=== PATIENT | female | born 1950 | race Caucasian/White ===

== ENCOUNTER 2021-11-13 11:23 | Observation (INO) | payer MEDICARE, OTHER ==
[~2021-11-13] VITALS: Ht 167.6 cm; Wt 102.2 kg
[2021-11-13] MEDS ORDERED: ASPIRIN CHEWABLE 81 MG TABLET. PO ONE (12:00)
--- NOTE | 2021-11-13 12:04 | PHYS DOC ---
Past History Past Medical History: GERD, Hypertension Past Surgical History: Tubal ligation, Other Additional Past Surgical Histo: TONSILS, R-FOOT Smoking: Non-smoker Alcohol Use: Rarely Drug Use: None General Adult EDM: Chief Complaint: CHEST PAIN HPI: HPI: Pt is a 71 yo F who presnts c/o intermittent CP since 199. Pt stats she awoke from sleep with L sided CP that radiated to her jaw and diaphoresis. Pt states at this time she took 2 baby ASA and went back to sleep. She states she awoke 2 hours later with a similar pain and went back to sleep. She states when she woke up for the day she had one more episode of pain, but has not had pain since. 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 She denies SOB and n/v/d. Patient reports cardiac risk factors of hypertension. Review of Systems: Review of Systems: Constitutional: Denies fever or chills Eyes: Denies redness or eye pain HENT: Denies nasal congestion or sore throat Respiratory: Denies cough or shortness of breath Cardiovascular: Denies palpitations; Reports chest pain and diaphoresis GI: Denies abdominal pain, nausea, or vomiting : Denies dysuria or hematuria Musculoskeletal: Denies back pain or joint pain Integument: Denies rash or skin lesions Neurologic: Denies headache, focal weakness or sensory changes Complete systems were reviewed and found to be within normal limits, except as documented in this note. Current Medications: Current Meds: Current Medications Medications (Trade) Dose Ordered Sig/[facility] Start Time Stop Time Status Last Admin Dose Admin Aspirin (Aspirin Chewable) 162 mg 1X ONCE 11/13/21 12:00 11/13/21 12:01 Allergies: Allergies: Allergies Coded Allergies Type Severity Reaction Last Updated Verified Sulfa (Sulfonamide Antibiotics) Allergy Unknown 11/13/21 Yes Physical Exam: PE: Constitutional: Well developed, well nourished, no acute distress, non-toxic appearance HENT: Normocephalic, atraumatic Eyes: Conjunctiva normal, no discharge Neck: Normal range of motion, supple Lungs & Thorax: No respiratory distress, equal chest rise and fall Abdomen: Soft, no tenderness Skin: Warm, dry, no erythema, no rash Back: No tenderness, no CVA tenderness Extremities: No tenderness, ROM intact, no edema Neurologic: Alert and oriented X 3, no focal deficits noted Psychologic: Affect normal, judgment normal Current Patient Data: Vital Signs: Vital Signs Date Time Temp Pulse Resp B/P (MAP) Pulse Ox O2 Delivery O2 Flow Rate FiO2 11/13/21 11:30 98.2 65 20 187/77 (113) 100 Room Air EKG: EKG: @[address] elevation baseline artifact noted QRS 82 QTc 385 Radiology/Procedures: Radiology/Procedures: PROCEDURE: PORTABLE CHEST 1V EXAM: XR CHEST 1V 11/13/2021 12:06 PM CLINICAL INDICATION: Chest pain COMPARISON: None TECHNIQUE: AP upright view of the chest FINDINGS: The heart is normal in size. Lungs are adequately expanded. No consolidation, pleural effusion, or pneumothorax. No acute osseous abnormality. IMPRESSION: No acute cardiopulmonary abnormality. Electronically signed by: Chanel Spaulding MD (11/13/2021 12:11 PM) [id number] Heart Score: C/O Chest Pain: Yes HEART Score for Chest Pain: HEART Score for Chest Pain Response (Comments) Value History Moderately Suspicious 1 ECG Normal 0 Age > 65 2 Risk Factors 1 or 2 Risk Factors 1 Troponin < Normal Limit 0 Total 4 Risk Factors: Risk Factors: DM, Current or recent (<one month) smoker, HTN, HLP, family history of CAD, obesity. Risk Scores: Score 0 - 3: 2.5% MACE over next 6 weeks - Discharge Home Score 4 - 6: 20.3% MACE over next 6 weeks - Admit for Clinical Observation Score 7 - 10: 72.7% MACE over next 6 weeks - Early Invasive Strategies Course & Med Decision Making: Course & Med Decision Making Pertinent Labs and Imaging studies reviewed. (See chart for details) Pt is a 71 yo F who presents with intermittent chest pain. Patient with cardiac risk factors of hypertension. Patient took 162 mg of aspirin this morning. EKG without acute finding. An additional 162 mg of aspirin provided. Chest x-ray without acute finding. Labs obtained and posted to chart. Initial troponin within normal limits. HEART score 4. Recommended to patient need for admission for observation for f urther evaluation including serial troponins, telemetry monitoring, and cardiology evaluation. Patient reports she does not want to be admitted and is requesting to be discharged. Patient discussed findings with her family members and requests a 2-hour troponin to be evaluated. Patient reports if changed she may be agreeable to stay and/or be transferred. Repeat troponin within normal limits. Patient again advised of need for admission for further evaluation and treatment. Patient originally electing to leave AMA, however in talking with her family, she has decided to stay for further evaluation. Discussed case with Dr. España (hospitalist) who is in agreement with observation admission. Discussed case with Georgette CRUZ (cardiology) who is in agreement with consultation. Discussed findings and plan with patient, who acknowledges understanding and agreement. Dragon Disclaimer: Dragon Disclaimer: This electronic medical record was generated, in whole or in part, using a voice recognition dictation system. Departure Departure: Impression: Primary Impression: Chest pain Qualified Codes: R07.9 - Chest pain, unspecified Disposition: ADMITTED INPATIENT (observation) Admitting Physician: Olegario España Condition: STABLE Referrals: FAUSTINO MONTES (PCP) ELIAS VERGARA MD, MICHAEL R DO Nov 13, 2021 12:04
--- NOTE | 2021-11-13 12:13 | RAD ---
EXAM: XR CHEST 1V 11/13/2021 12:06 PM CLINICAL INDICATION: Chest pain COMPARISON: None TECHNIQUE: AP upright view of the chest FINDINGS: The heart is normal in size. Lungs are adequately expanded. No consolidation, pleural effu cait, or pneumothorax. No acute osseous abnormality. IMPRESSION: No acute cardiopulmonary abnormality. Electronically signed by: Chanel Spaulding MD (11/13/2021 12:11 PM) [id number]
[2021-11-13 12:14] LABS: BASO # 0.1 x10^3/uL (0.0-0.2); BASO % 1 % (0-3); EOS # 0.2 x10^3/uL (0.0-0.7); EOS % 2 % (0-3); HEMATOCRIT 39.2 % (36.0-47.0); HEMOGLOBIN 12.8 g/dL (12.0-15.5); LYMPH # 2.6 x10^3/uL (1.0-4.8); LYMPH % 27 % (24-48); MEAN CORPUSCULAR HEMOGLOBIN 29 pg (25-35); MEAN CORPUSCULAR HGB CONC 33 g/dL (31-37); MEAN CORPUSCULAR VOLUME 87 fL (79-100); MONO # 0.8 x10^3/uL (0.0-1.1); MONO % 8 % (0-9); NEUT % 62 % (31-73); PLATELET COUNT 298 x10^3/uL (140-400); RED BLOOD COUNT 4.51 x10^6/uL (3.50-5.40); RED CELL DISTRIBUTION WIDTH 14.7 % (11.5-14.5); WHITE BLOOD COUNT 9.7 x10^3/uL (4.0-11.0)
[2021-11-13 12:27] LABS: CALCIUM 9.5 mg/dL (8.5-10.1); CREATININE 0.8 mg/dL (0.6-1.0); GFR 71.1; POTASSIUM 4.4 mmol/L (3.5-5.1)
[2021-11-13 12:44] LABS: ALBUMIN 3.2 g/dL (3.4-5.0); ALBUMIN/GLOBULIN RATIO 0.8 (1.0-1.7); MAGNESIUM 1.9 mg/dL (1.8-2.4); TOTAL BILIRUBIN 0.5 mg/dL (0.2-1.0); TOTAL PROTEIN 7.1 g/dL (6.4-8.2)
[2021-11-13 13:13] LABS: BACTERIA,URINE 0 /HPF (0-FEW); CLARITY,URINE CLEAR; COLOR,URINE YELLOW; GLUCOSE,URINE NEG (NEG); NITRITE,URINE NEG (NEG); RBC,URINE OCC /HPF (0-2); SQUAMOUS EPITHELIAL CELL,UR OCC /LPF; UROBILINOGEN,URINE 0.2 mg/dL (0.2 mg/dL); WBC,URINE 0 /HPF (0-4)
[2021-11-13] MEDS ORDERED: MELO15TA23 PO (15:54)
[2021-11-13] MEDS ORDERED: ATOR10TA60 PO (15:54)
[2021-11-13] MEDS ORDERED: HYDR25TA10 PO (15:54)
--- NOTE | 2021-11-13 16:20 | NUR ---
PT ARRIVED TO UNIT VIA EMS. PT VS OBTAINED AND ARE STABLE. PT IS ORIENTED TO UNIT AND GIVEN NEW PT PACKET. PTS TELE IS APPLIED AND PT IS OFFERED FOOD AND DRINK. PT IS RESTING IN BED AT THIS TIME. DR GARCIA NOTIFIED OF ADMISSION.
[2021-11-13] MEDS ORDERED: ALPR0.254 PO (18:14)
[2021-11-13 20:24] VITALS: BP 122/77
[2021-11-13] MEDS: ALPRAZolam 0.25 MG TABLET PO PRN (21:49)
[2021-11-13 23:14] VITALS: BP 99/62
--- NOTE | 2021-11-14 00:44 | EKG ---
[address] [address] Test Date: 2021-11-13 Test Time: 11:44:09 Pat Name: SABINA MORRISSEY Department: Room: 123 A Gender: F [employer] Instructor: : [id number] Requested By: MERRITT DEJESUS Order Number: [id number] Reading MD: Frandy Daniels Measurements Intervals [place] Rate: 53 P: 0 OR: 204 QRS: 26 QRSD: 82 T: 21 QT: 408 QTc: 385 Interpretive Statements SINUS RHYTHM T ABNORMALITY IN ANTERIOR LEADS ABNORMAL ECG RI6.02 No previous ECG available for comparison Electronically Signed On 11-15-2021 18:19:47 CDT by Frandy Daniels
[2021-11-14 05:59] VITALS: BP 115/65
[2021-11-14] MEDS ORDERED: LANSOPRAZOLE 30 MG TAB.RAP.DR FT SCH (07:30)
[2021-11-14] MEDS: ALPRAZolam 0.25 MG TABLET PO PRN (07:40)
--- NOTE | 2021-11-14 07:57 | PDOC2 ---
CARDIAC CONSULT DATE OF CONSULT DOS: DATE: 11/14/21 TIME: 07:54 REASON FOR CONSULT Reason for Consult Chest pain REFERRING PHYSICIAN Referring Physician Dr. España SOURCE Source: Chart review, Patient HPI History of Present Illness This is a 71 yo female who presented secondary to chest pain. Patient reports she woke up in the middle of the night on Saturday with brief sharp pains under her left chest. She went back to sleep and woke up a few hours later and had a pain in her left jaw and felt sweaty. She took 2 ASA and went back to sleep. She then woke up that morning and pain was gone. She had another brief sharp pains under her left breast later that morning. No dizziness, palpitations, or shortness of breath. has a history of NM and CAD s/p CABG recently and she reports he had atypical symptoms. Was concerned that maybe she was having a heart attach so she came into the ED for further evaluation and treatment. No prior history of CAD or cardiac workup. 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 She also helps take care of her granddaughter as she has a grandson who recently when through transplant surgery. Reports immense amount of stress recently. PAST MEDICAL HISTORY Cardiovascular: hyperipidemia GI: GERD Psych: Anxiety PAST SURGICAL HISTORY Past Surgical History: No pertinent history FAMILY HISTORY Family History: Hypertension SOCIAL HISTORY Smoke: No ALCOHOL: none Drugs: None Lives: with Family CURRENT MEDICATIONS Current Medications Current Medications Aspirin (Aspirin Chewable) 162 mg 1X ONCE PO Last administered on 11/13/21at 12:02; Start 11/13/21 at 12:00; Stop 11/13/21 at 12:01; Status DC Lansoprazole (Prevacid) 30 mg BIDBFRMEAL FT Last administered on 11/14/21at 07:39; Start 11/14/21 at 07:30 Atorvastatin Calcium (Lipitor) 10 mg DAILY PO Last administered on 11/14/21at 07:40; Start 11/14/21 at 09:00 Hydrochlorothiazide (Hydrodiuril) 25 mg DAILY PO Last administered on 11/14/21at 07:39; Start 11/14/21 at 09:00 Alprazolam (Xanax) 0.25 mg PRN TID PRN PO anxiety Last administered on 11/14/21at 07:40; Start 11/13/21 at 20:30 Active Scripts Active Reported Alprazolam 0.25 Mg Tablet 1 Tab PO TID PRN Meloxicam 15 Mg Tablet 1 Tab PO DAILY Atorvastatin Calcium 10 Mg Tablet 1 Tab PO DAILY Hydrochlorothiazide 25 Mg Tablet 1 Tab PO DAILY ALLERGIES Allergies: Coded Allergies: Sulfa (Sulfonamide Antibiotics) (Verified Allergy, Unknown, 11/13/21) ROS Review of Systems 14 point ROS conducted with pertinent positives noted above in HPI PHYSICAL EXAM General: Alert, Oriented X3, Cooperative, No acute distress HEENT: Atraumatic Lungs: Clear to auscultation Heart: Regular rate Abdomen: Soft, No tenderness Extremities: No edema, Normal pulses Skin: No breakdown Neuro: Normal speech, Sensation intact Psych/Mental Status: Mental status NL, Mood NL MUSCULOSKELETAL: Osteoarthritic changes both hands VITALS Vital Signs Vital Signs Date Time Temp Pulse Resp B/P (MAP) Pulse Ox O2 Delivery O2 Flow Rate FiO2 11/14/21 05:59 97.6 59 20 115/65 (82) 95 Room Air LABS LABS Laboratory Tests Test 11/13/21 11:55 11/13/21 12:10 11/13/21 12:43 11/13/21 13:54 White Blood Count 9.7 x10^3/uL (4.0-11.0) Red Blood Count 4.51 x10^6/uL (3.50-5.40) Hemoglobin 12.8 g/dL (12.0-15.5) Hematocrit 39.2 % (36.0-47.0) Mean Corpuscular Volume 87 fL (79-100) Mean Corpuscular Hemoglobin 29 pg (25-35) Mean Corpuscular Hemoglobin Concent 33 g/dL (31-37) Red Cell Distribution Width 14.7 % (11.5-14.5) Platelet Count 298 x10^3/uL (140-400) Neutrophils (%) (Auto) 62 % (31-73) Lymphocytes (%) (Auto) 27 % (24-48) Monocytes (%) (Auto) 8 % (0-9) Eosinophils (%) (Auto) 2 % (0-3) Basophils (%) (Auto) 1 % (0-3) Neutrophils # (Auto) 6.0 x10^3uL (1.8-7.7) Lymphocytes # (Auto) 2.6 x10^3/uL (1.0-4.8) Monocytes # (Auto) 0.8 x10^3/uL (0.0-1.1) Eosinophils # (Auto) 0.2 x10^3/uL (0.0-0.7) Basophils # (Auto) 0.1 x10^3/uL (0.0-0.2) Sodium Level 137 mmol/L (136-145) Potassium Level 4.4 mmol/L (3.5-5.1) Chloride Level 106 mmol/L (98-107) Carbon Dioxide Level 25 mmol/L (21-32) Anion Gap 6 (6-14) Blood Urea Nitrogen 21 mg/dL (7-20) Creatinine 0.8 mg/dL (0.6-1.0) Estimated GFR (Cockcroft-Gault) 71.1 BUN/Creatinine Ratio 26 (6-20) Glucose Level 112 mg/dL (70-99) Calcium Level 9.5 mg/dL (8.5-10.1) Magnesium Level 1.9 mg/dL (1.8-2.4) Total Bilirubin 0.5 mg/dL (0.2-1.0) Aspartate Amino Transf (AST/SGOT) 30 U/L (15-37) Alanine Aminotransferase (ALT/SGPT) 26 U/L (14-59) Alkaline Phosphatase 107 U/L (46-116) Creatine Kinase 111 U/L (26-192) Creatine Kinase MB (Mass) 1.5 ng/mL (0.0-3.6) Creatine Kinase MB Relative Index 1.4 % (0-4) Troponin I High Sensitivity 10 ng/L (4-50) 10 ng/L (4-50) WQ-Ucr-I-Type Natriuretic Peptide 389 pg/mL (0-124) Total Protein 7.1 g/dL (6.4-8.2) Albumin 3.2 g/dL (3.4-5.0) Albumin/Globulin Ratio 0.8 (1.0-1.7) Lipase 68 U/L (73-393) Urine Collection Type Clean catch Urine Color Yellow Urine Clarity Clear Urine pH 5.5 Urine Specific [place] 1.020 Urine Protein Neg (NEG-TRACE) Urine Glucose (UA) Neg mg/dL (NEG) Urine Ketones (Stick) Neg mg/dL (NEG) Urine Blood Trace (NEG) Urine Nitrite Neg (NEG) Urine Bilirubin Neg (NEG) Urine Urobilinogen Dipstick 0.2 mg/dL (0.2 mg/dL) Urine Leukocyte Esterase Neg (NEG) Urine RBC Occ /HPF (0-2) Urine WBC 0 /HPF (0-4) Urine Squamous Epithelial Cells Occ /LPF Urine Bacteria 0 /HPF (0-FEW) Coronavirus (COVID-19)(PCR) Not detected (NOT DETECTD) SARS-CoV-2 Antigen (Rapid) Negative (NEGATIVE) Test 11/13/21 19:40 Troponin I High Sensitivity 11 ng/L (4-50) ASSESSMENT/PLAN Assessment/Plan 1. Chest pain, atypical; AMI ruled out. EKG without significant acute changes 2. Accelerated hypertension; now controlled 3. Hyperlipidemia; statin 4. Anxiety, high stress burden at home caring for Recommendations ASA. Lipids- continue statin Echo today Outpatient stress test and followup as arranged Supportive care LOIS CADENA APRN Nov 14, 2021 07:57
[2021-11-14] MEDS ORDERED: hydroCHLOROthiazide 25 MG TABLET. PO SCH (09:00)
[2021-11-14] MEDS ORDERED: ATORVASTATIN CALCIUM 10 MG TABLET. PO SCH (09:00)
--- NOTE | 2021-11-14 10:30 | NUR ---
PATIENT IS DISCHARGED HOME WITH SELF CARE. PT IS STABLE AT TIME OF DISCHARGE. IV IS REMOVED AND TELE MONITOR D/C'D. PT IS GIVEN ALL DISCHARGE AND FOLLOW UP INSTRUCTIONS INCLUDING CARDIOLOGY FOLLOW UP APPOINTMENTS. PT IS ESCORTED OFF OF UNIT ACCOMPANIED BY [facility]. WILL CONTINUE TO MONITOR.
--- NOTE | 2021-11-14 10:33 | HP ---
DATE OF SERVICE: 11/14/2021 ADMIT DATE: 11/13/2021 ATTENDING PHYSICIAN: Dr. España. CHIEF COMPLAINT: Chest pain. HISTORY OF PRESENT ILLNESS: The patient is a very pleasant, active 71-year-old female, admitted through the ED with chest pain that awoke her in the middle of the night on Saturday. She had an extensive workup. The pain was quite severe. Her has been ill lately, diagnosed with a stroke and with the cancer. 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 Her initial enzymes were negative for coronary ischemia. Risk factors are minimal. She was admitted then for rule out, serial enzymes and formal Cardiology consultation. PAST MEDICAL HISTORY: Significant for laparoscopic cholecystectomy, degenerative arthritis and hyperlipidemia. SOCIAL HISTORY: She is a nonsmoker, nondrinker. She drinks occasional caffeine. CURRENT MEDICATIONS: Reviewed. ALLERGIES: SHE HAS ALLERGIES TO SULFA DRUGS. Other scheduled meds include Mobic 15 mg daily, Lipitor, hydrochlorothiazide, and alprazolam. FAMILY HISTORY: Noncontributory. No history of heart disease. REVIEW OF SYSTEMS: Significant for the stress encounter with her 's recent illness. 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 All other systems reviewed and turned out to be negative. She has no COVID exposure. PHYSICAL EXAMINATION: GENERAL: When I saw her, this is a pleasant, middle-aged female. VITAL SIGNS: Initial vital signs showed a blood pressure 122/77, pulse is 60 and regular. She was afebrile, oxygen saturation 96% on room air. HEENT: Head is without trauma. Pupils are reactive. Sclerae are nonicteric. Oropharynx clear. NECK: Supple. No bruits. LUNGS: Clear to auscultation. CARDIOVASCULAR: Showed regular heart tones. ABDOMEN: Soft. EXTREMITIES: Without edema. NEUROLOGIC FINDINGS: Focally intact. PERTINENT LABORATORY STUDIES: Hemoglobin on admission was 12.8 g/dL with a white count of 9700. The first set of cardiac enzymes were negative. Electrolytes, BUN and creatinine all within normal range. BNP was 389. IMAGING STUDIES: Chest x-ray on admission showed no acute cardiopulmonary process. ASSESSMENT: 1. A 71-year-old female with atypical chest pain, most likely gastroesophageal nature. 2. Probable nonsteroidal anti-inflammatory drug gastritis. 3. Increased stress due to her 's illness. 4. Degenerative arthritis of knees. PLAN: 1. Observation status. 2. Serial enzymes. 3. Formal Cardiology consultation in the morning. 4. Stop meloxicam. JIMMY/FLORY DR: Jordy TID: [id number]
--- NOTE | 2021-11-14 13:46 | DS ---
DATE OF DISCHARGE: 11/14/2021 ATTENDING PHYSICIAN: Dr. España. FINAL DISCHARGE DIAGNOSES: 1. Atypical chest pain, coronary ischemia ruled out. 2. Gastroesophageal reflux disease. 3. Probable nonsteroidal anti-inflammatory drug gastritis. 4. Hypertension. 5. History of tubal ligation, history of appendectomy, history of cholecystectomy. 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 She has been taking care of her debilitated . She came in with chest pain, most likely gastroesophageal in nature. She was admitted for further treatment, rule out and Cardiology consultation. PHYSICAL EXAMINATION: Please see the dictated note. PERTINENT LABORATORY AND X-RAY STUDIES: Chest x-ray was clear. No overt decompensation. BNP was adequate. CBC was normal. Three sets of cardiac enzymes negative for coronary ischemia. Electrolytes, BUN and creatinine, liver functions were all within normal range. COURSE IN THE HOSPITAL: She was admitted. Formal Cardiology consultation recommended an echocardiogram, which was completed. Results are pending. She is also going to be set up for an outpatient nuclear medicine stress test. Reassurance the pain subsided. She is discharged home the next day in stable condition. I recommended oral Mylanta as needed and to stop her meloxicam. She can continue her Xanax, lipid agent and hydrochlorothiazide. The patient was then discharged from our hospital in stable condition with explicit drug and followup care. JIMMY/MAEGAN QUIROZ: JIMMY/karyna TID: [id number]
--- NOTE | 2021-11-14 17:16 | CARD ---
MR#: [id number] Date of Study: 11/14/2021 Ordering Physician: LOIS CADENA, Referring Physician: LOIS CADENA, Tech: Vinayak Mae [facility] APPROVED REPORT EXAM: Two-dimensional and M-mode echocardiogram with Doppler and color Doppler. Other Information Quality : AverageHR: 57bpm Rhythm : NSR INDICATION Chest Pain Tachycardia RISK FACTORS Obesity Hyperlipidemia 2D DIMENSIONS Left Atrium(2D)4.1 (1.6-4.0cm)IVSd0.9 (0.7-1.1cm) Aortic Root(2D)2.5 (2.0-3.7cm)LVDd5.0 (3.9-5.9cm) LVOT Diameter1.9 (1.8-2.4cm)PWd1.0 (0.7-1.1cm) LA Gqbsun45 (18-58mL)LVDs2.2 (2.5-4.0cm) FS (%) 55.5 %SV101.5 ml Aortic Valve AoV Peak Wally.151.6cm/sAoV VTI33.8cm AO Peak GR.9.2mmHgLVOT Peak Wally.147.4cm/s LVOT VTI 32.48cmAO Mean GR.5mmHg LANIE (VMAX)2.51ln8YEZ (VTI)2.61cm2 Mitral Valve MV E Kykwytnn840.5cm/sMV E Peak Gr.6mmHg MV DECEL ONLO609ohSE A Hidnklpt96.4cm/s MV E Mean Gr.2mmHgE/A Ratio1.4 Pulmonary Valve PV Peak Iizvooys922.4cm/sPV Peak Grad.5mmHg Tricuspid Valve TR P. Dftlbkxo487qm/sTR Peak Gr.17mmHg Pulmonary Vein S1 Odnxccvr30.1cm/sD2 Onfxakeb94.8cm/s LEFT VENTRICLE The left ventricle is normal size. There is normal left ventricular wall thickness. The left ventricu lar systolic function is normal and the ejection fraction is within normal range. LV ejection fractio n of 55 to 60%. There is normal LV segmental wall motion. No left ventricle thrombus noted on this st udy. There is no ventricular septal defect visualized. There is no left ventricular aneurysm. There i s no mass noted in the left ventricle. RIGHT VENTRICLE The right ventricle is normal size. There is normal right ventricular wall thickness. The right ventr icular systolic function is normal. ATRIA The left atrium is mildly dilated. The right atrium size is normal. The interatrial septum is intact with no evidence for an atrial septal defect or patent foramen ovale as noted on 2-D or Doppler imagi ng. AORTIC VALVE The aortic valve is normal in structure and function. Doppler and Color Flow revealed trace aortic re gurgitation. There is no significant aortic valvular stenosis. There is no aortic valvular vegetation . MITRAL VALVE The mitral valve is calcified but opens well. There is no evidence of mitral valve prolapse. There is no mitral valve stenosis. Doppler and Color-flow revealed trace mitral regurgitation. TRICUSPID VALVE The tricuspid valve is normal in structure and function. Doppler and Color Flow revealed trace tricus pid regurgitation. The PA pressure was estimated at 22 mmHg. There is no tricuspid valve prolapse or vegetation. There is no tricuspid valve stenosis. PULMONIC VALVE The pulmonary valve is normal in structure and function. Doppler and Color Flow revealed no pulmonic valvular regurgitation. There is no pulmonic valvular stenosis. GREAT VESSELS The aortic root is normal in size. The ascending aorta is normal in size. The pulmonary artery is nor mal. The IVC is normal in size and collapses >50% with inspiration. PERICARDIAL EFFUSION There is no pleural effusion. There is no evidence of significant pericardial effusion. Critical Notification Critical Value: No <Conclusion> The left ventricle is normal size. The left ventricular systolic function is normal and the ejection fraction is within normal range. LV ejection fraction of 55 to 60%. Doppler and Color Flow revealed trace aortic regurgitation. There is no significant aortic valvular stenosis. The mitral valve is calcified but opens well. Doppler and Color-flow revealed trace mitral regurgitation. Doppler and Color Flow revealed trace tricuspid regurgitation. The PA pressure was estimated at 22 mmHg. Signed by : Regino Koroma MD Electronically Approved : 11/14/2021 17:15:42
[2021-11-15] MEDS ORDERED: ASPIRIN ENTERIC COATED 81 MG TABLET.DR. PO SCH (08:00)
== END 2021-11-14 10:30 | disposition home or self-care (01) ==
LOC: ER 11:23 → 1 SOUTH 15:18 → ER 16:15
PROVIDERS: ADMIT Hospitalist; ATTEND Hospitalist
DX: R07.89 Other chest pain (principal); Z20.822 Contact with and (suspected) exposure to COVID-19; K21.9 Gastro-esophageal reflux disease without esophagitis; K29.60 Other gastritis without bleeding; M17.0 Bilateral primary osteoarthritis of knee; I10 Essential (primary) hypertension; I25.10 Atherosclerotic heart disease of native coronary artery without angina pectoris; I25.2 Old myocardial infarction; K29.70 Gastritis, unspecified, without bleeding; E78.5 Hyperlipidemia, unspecified; F43.9 Reaction to severe stress, unspecified; F41.9 Anxiety disorder, unspecified; Z90.49 Acquired absence of other specified parts of digestive tract; Z95.1 Presence of aortocoronary bypass graft; Z98.51 Tubal ligation status; Z79.82 Long term (current) use of aspirin; Z79.899 Other long term (current) drug therapy; Z98.890 Other specified postprocedural states
CPT/HCPCS: 36415; 71045; 80053; 80061; 81001; 82553; 83690; 83735; 83880; 84484; 85025; 87426; 93005; 93306; 99285; G0378; U0003; G0379